=== PATIENT | male | born 1960 | race Caucasian/White ===

== ENCOUNTER → 2022-07-04 | Outpatient (CLI) | payer BC, SELFPAY ==
[2022-07-04 17:50] LABS: Absolute Lymphocyte Count 2.57 X10^3/uL (0.83-4.51); Absolute Neutrophil Count 5.5 X10^3/uL (2.0-7.7); Basophil% 1.1 % (0-1); Eosinophil# 0.25 X10^3/uL; Eosinophils% 2.7 % (0-5); Hematocrit 42.6 % (40-54); Hemoglobin 14.1 g/dL (13.0-16.5); Lymphocyte # 2.57 X10^3/ul (0.83-4.51); Lymphocyte % 27.9 % (19-41); Mean Corp Hgb Conc 33.1 g/dL (32-36); Mean Corpuscular Hgb 31.1 pg (27.0-32.0); Mean Corpuscular Volume 93.8 fL (80-94); Mean Platelet Vol. 11.3 fl (6.2-12.0); Monocyte# 0.72 X10^3/uL; Monocyte% 7.8 % (0-10); NRBC Flagged by Analyzer 0 % (0-5); Neutrophil # 5.53 X10^3/uL (2.7-7.7); Neutrophil % 60.2 % (47-70); Platelet Count 205 K/mm3 (150-450); RBC Distribution Width CV 13.4 % (11.6-14.6); RBC Distribution Width SD 46.5 fl (35.1-43.9); Red Blood Count 4.54 M/mm3 (4.6-6.2); White Blood Count 9.2 K/mm3 (4.4-11.0)
[2022-07-04 18:08] LABS: Cholesterol 170 mg/dL (200); High Density Lipoprotein 89 mg/dL; PSA,Total - Annual Screen 0.56 ng/mL (0.00-4.00); Thyroid Stim Hormone (TSH) 1.74 uIU/mL (0.358-3.74); Triglycerides 202 mg/dL; Very Low Density Lipoprotein 40 mg/dL (5-40)
[2022-07-04 18:54] LABS: Hemoglobin A1c 5.3 % (3.8-5.6)
== END | disposition home or self-care (01) ==
LOC: MTLAB 16:05
PROVIDERS: PCP Family Medicine; Referring Provider Family Medicine; Visit Provider Family Medicine
DX: Z13.0 Encounter for screening for diseases of the blood and blood-forming organs and certain disorders involving the immune mechanism (principal); Z13.1 Encounter for screening for diabetes mellitus; Z13.220 Encounter for screening for lipoid disorders; Z12.5 Encounter for screening for malignant neoplasm of prostate; Z13.29 Encounter for screening for other suspected endocrine disorder
CPT/HCPCS: 36415; 80061; 83036; 84153; 84443; 85025; G0103

== ENCOUNTER → 2023-08-08 | Outpatient (CLI) | payer BC, SELFPAY ==
[2023-08-08 18:37] LABS: Anion Gap 11 (5-15); BUN 15 mg/dL (7-18); BUN/Creat Ratio 16.9 RATIO (10-20); Calcium,Total 9.7 mg/dL (8.5-10.1); Chloride 104 mmol/L (98-107); Creatinine, Serum 0.89 mg/dL (0.70-1.30); EST Glomerular Filtration Rate 93 mL/min (>60); Est Glom Filt Rate - Afr Amer 112 mL/min (>60); Glucose 100 mg/dL (74-106); Sodium Level 138 mmol/L (136-145)
== END | disposition home or self-care (01) ==
LOC: MFPLAB 15:55
PROVIDERS: PCP Family Medicine; Visit Provider Family Medicine
DX: I10 Essential (primary) hypertension (principal)
CPT/HCPCS: 36415; 80048

== ENCOUNTER 2023-09-02 21:46 | Emergency (ER) | payer BC, SELFPAY ==
[2023-09-02 21:47] VITALS: BP 165/82; PULSE 93; RESP 18; TEMP 36.5; O2SAT 98; BMI 24.6
--- NOTE | 2023-09-02 22:00 | CT_ITS ---
EXAM: CT NECK WITH INTRAVENOUS CONTRAST CLINICAL INDICATION: L parotidis TECHNIQUE: Helically acquired images were obtained of the neck with intravenous contrast. This CT exam was performed using one or more of the following dose reduction techniques: automated exposure control, adjustment of the mA and/or kV according to patient size, and/or use of iterative reconstruction technique. CONTRAST: IV 100mL Isovue-370 COMPARISON: No relevant prior studies available. FINDINGS: NASOPHARYNX: No significant abnormality. SUPRAHYOID NECK: No significant abnormality. Oropharynx, oral cavity, parapharyngeal space and retropharyngeal space are unremarkable. INFRAHYOID NECK: No significant abnormality. The larynx, hypopharynx and supraglottis are unremarkable. SUBMANDIBULAR/PAROTID GLANDS: Edematous changes in the left parotid gland. Its margins are obscured with surrounding inflammatory changes. The right parotid and bilateral submandibular glands appear normal. THYROID: No significant abnormality. No enlarged or calcified nodules. SINUSES: Mucosal thickening in the paranasal sinuses. ORBITS: Bilateral ocular lens extraction presumptively for the treatment of cataracts. Otherwise, no acute orbital pathology. DENTAL: Extensive dental amalgam related to attenuation artifacts during and distorting adjacent tissues. This is a significant limitation of this examination. BONES/JOINTS: Multilevel degenerative changes in the cervical spine worst at C5-C6 where there is at least mild spinal canal stenosis and mild to moderate neural foraminal stenosis. No acute fracture. SOFT TISSUES: Extensive edema with soft tissue swelling in the left side of the face. Apparent thickening of the left masseter muscle with ill-defined margins. Left facial skin thickening with subcutaneous edema. No discrete soft tissue abscess is identified. VASCULATURE: No significant findings. LYMPH NODES: Multiple enlarged lymph nodes are present in bilateral level 2, left greater than right. LUNG APICES: Centrilobular emphysema. CT/Soft Tissue Neck WITH Contrast IMPRESSION: 1. The left-sided facial inflammatory changes may be secondary to parotitis or perhaps cellulitis and myositis of the masseter. No discrete abscess. No definite dental nidus for this inflammation is present. 2. Centrilobular emphysema. NOTE: Emphysema on CT is an independent risk factor for lung cancer. Consider low dose CT for lung cancer screening between the ages of 50 and 77. Electronically Signed: Aaron Brown DO at 23:20 EDT ,
--- NOTE | 2023-09-02 22:01 | ED.VIS.DENTA ---
HPI History of Present Illness Chief Complaint: Dental Informant: patient Narrative Narrative: 63-year-old male presenting for dental pain and he is having trouble controlling his pain. He states it started 3 to 4 days ago gradually, he states he seems to notice it after he accidentally bit the inside of his mouth on the left side. He admits he is not having any tooth ache. But he thought it was a dental abscess developing so he went and saw his dentist, he took some x-rays and said that the left maxillary second molar appeared to be diseased and getting some infection so he agreed with the patient that it was a dental abscess and put him on amoxicillin. Patient states he is simply here for pain control because he was taking ibuprofen 600 mg along with a pill of Tylenol and it is not touching the pain. Denies any systemic symptoms he is not a diabetic and does not have HIV. [facility] Medical History (Updated 09/02/23 @ 23:[address] Ab Gunderson MD) Smoker HTN (hypertension) Home Medications ?Medication ?Instructions ?Recorded ?Last Taken ?Type amoxicillin 875 mg-potassium 875 mg PO Q12H #28 TABLETS 09/02/23 Unknown Rx clavulanate 125 mg tablet hydrocodone-acetaminophen 5-325mg 1 tab PO Q6H PRN PRN Pain 3 days 09/02/23 Unknown Rx 5mg-325mg #12 TABLETS lisinopril 5 mg tablet 5 mg PO QHS 09/02/23 Unknown History sildenafil 50 mg tablet 50 mg PO QHS PRN ed 09/02/23 Unknown History Allergy/AdvReac Type Severity Reaction Status Date / Time No Known Allergies Allergy Verified 09/02/23 21:47 Surgical History (Updated 09/02/23 @ 22:21 by Edith Moses) Hx of inguinal hernia surgery Social History Smoking Status: Current every day smoker tobacco type: cigarettes ROS ROS ED Constitutional Constitutional ED: Denies chills or fever(s) ENT ENT ED: Reports other Details: facial pain/swelling Cardiovascular Cardiovascular: Denies chest pain Respiratory/Chest Respiratory/Chest: Denies cough or dyspnea Musculoskeletal Musculoskeletal: Denies back pain or neck pain Integumentary Denies rash Neurologic Neurologic: Denies headache(s), paresthesias or weakness EXAM Physical Exam Const Vital Signs: 09/02/23 21:47 Temperature 97.7 F L Temperature Source Temporal Pulse Rate 93 Respiratory Rate 18 Blood Pressure 165/82 H Blood Pressure Mean 109 Pulse Ox 98 Oxygen Delivery Method Room Air Positive well nourished and well developed General Appearance ED: well developed and NAD HEENT HEENT Narrative: Left preauricular area is swollen, tender, and firm. There is no submandibular swelling or tenderness, there is no dental tenderness. No trismus. No sublingual swelling. Stensen's duct on the left is nontender but prominent. With massaging the left parotid gland, there is a small amount of purulent material emanating from the left Stensen's duct. Face and Sinus: sinuses nontender Eyes PERRL and EOMs intact bilaterally Neck no lymphadenopathy and supple Resp normal respiratory effort Neuro oriented x3, CN's II-XII intact bilaterally, moves all extremities, no focal motor deficits and no sensory deficits noted Gait (Neuro): normal gait Psych mental status grossly normal Skin no rashes or lesions noted and no wounds MDM MDM MDM Narrative Medical decision making narrative: As I discussed with the patient my concern that this is not a tooth ache and rather is acute parotitis. Will obtain labs and a CT in order to discern whether there is an abscess or not and whether there is a stone in the duct or not, as well as to confirm my clinical suspicion. In the meantime and given him Toradol, morphine, and empiric Unasyn [address] the CT images and report which I agree with, it confirms parotitis. There is no sialolithiasis. I am going to put him on Augmentin as well as something for pain, and have him follow-up with ENT if this does not get better on its own. Otherwise he can follow-up with his PCP. I do not think this is months he has no other symptoms, and I do not have otolaryngology on-call today in order to discuss this with. Lab Data Attestation: I reviewed the patient's lab results. Labs: Laboratory Results - last 24 hr 09/02/23 22:20 WBC 10.2 RBC 4.41 L Hgb 13.7 Hct 39.8 L MCV 90.2 MCH 31.1 MCHC 34.4 RDW Std Deviation 42.3 RDW Coeff of Roman 12.7 Plt Count 201 MPV 10.6 Immature Gran % (Auto) 0.700 Neut % (Auto) 77.1 H Lymph % (Auto) 12.7 L Bonner % (Auto) 7.3 Eos % (Auto) 1.7 Baso % (Auto) 0.5 Absolute Neuts (auto) 7.9 H Absolute Lymphs (auto) 1.30 Nucleated RBC % 0 Sodium 137 Potassium 3.1 L Chloride 104 Carbon Dioxide 24.0 Anion Gap 9 BUN 19 H Creatinine 0.95 Estim Creat Clear Calc 84.31 Est GFR (MDRD) Af Amer 103 Est GFR (MDRD) Non-Af 85 BUN/Creatinine Ratio 20.0 Glucose 139 H Calcium 8.8 Radiography Diagnostic Testing: Clinical Impression(s) from Imaging Studies Soft Tissue Neck CT 09/02/23 22:00 IMPRESSION: 1. The left-sided facial inflammatory changes may be secondary to parotitis or perhaps cellulitis and myositis of the masseter. No discrete abscess. No definite dental nidus for this inflammation is present. 2. Centrilobular emphysema. NOTE: Emphysema on CT is an independent risk factor for lung cancer. Consider low dose CT for lung cancer screening between the ages of 50 and 77. Electronically Signed: Aaron Brown DO at 23:20 EDT , Discharge Plan Triage Chief Complaint: Dental ED Provider: Ab Gunderson Dx/Rx/DC Orders Clinical Impression: Acute suppurative parotitis Instructions: ED Salivary Gland Infection Prescriptions: New hydrocodone-acetaminophen 5-325 mg tablet 1 tab PO Q6H PRN PRN (Reason: Pain) 3 Days Qty: 12 0RF amoxicillin-pot clavulanate 875-125 mg tablet 875 mg PO Q12H Qty: 28 0RF Continued lisinopril 5 mg tablet 5 mg PO QHS sildenafil 50 mg tablet 50 mg PO QHS PRN (Reason: ed) Discontinued amoxicillin 250 mg capsule 250 mg PO Q6H Primary Care Provider: Valarie Burnett Referrals: Valarie Burnett MD [Primary Care Provider] - As soon as possible Earl Dhillon MD [Med Staff - Active Staff] - 1 Week if not improving Print Language: [place] Disposition Disposition: Home, Self Care Discharge Date/Time: 09/03/23 00:28
[2023-09-02 22:29] LABS: Absolute Neutrophil Count 7.9 X10^3/uL (2.0-7.7); Basophil# 0.05 X10^3/uL; Basophil% 0.5 % (0-1); Eosinophil# 0.17 X10^3/uL; Eosinophils% 1.7 % (0-5); Hematocrit 39.8 % (40-54); Hemoglobin 13.7 g/dL (13.0-16.5); Lymphocyte % 12.7 % (19-41); Mean Corp Hgb Conc 34.4 g/dL (32-36); Mean Corpuscular Hgb 31.1 pg (27.0-32.0); Mean Corpuscular Volume 90.2 fL (80-94); Mean Platelet Vol. 10.6 fl (6.2-12.0); Monocyte# 0.74 X10^3/uL; Monocyte% 7.3 % (0-10); NRBC Flagged by Analyzer 0 % (0-5); Neutrophil # 7.87 X10^3/uL (2.7-7.7); Neutrophil % 77.1 % (47-70); Platelet Count 201 K/mm3 (150-450); RBC Distribution Width CV 12.7 % (11.6-14.6); RBC Distribution Width SD 42.3 fl (35.1-43.9); Red Blood Count 4.41 M/mm3 (4.6-6.2); White Blood Count 10.2 K/mm3 (4.4-11.0)
[2023-09-02] MEDS: Ketorolac 15 MG/ML Vial IV (22:32)
[2023-09-02] MEDS: Ampicillin/Sulbactam 3 GM in 0.9% Normal Saline (100mL MB+) 100 ML IV (22:35)
[2023-09-02] MEDS: Morphine 4 MG/ML Syringe IV (22:38)
[2023-09-02 22:49] LABS: Anion Gap 9 (5-15); BUN 19 mg/dL (7-18); Calcium,Total 8.8 mg/dL (8.5-10.1); Chloride 104 mmol/L (98-107); Creatinine, Serum 0.95 mg/dL (0.70-1.30); EST Glomerular Filtration Rate 85 mL/min (>60); Est Glom Filt Rate - Afr Amer 103 mL/min (>60); Estimated Creatinine Clearance 84.31 ml/min; Glucose 139 mg/dL (74-106); Potassium 3.1 mmol/L (3.5-5.1); Sodium Level 137 mmol/L (136-145)
== END 2023-09-03 00:28 | disposition home or self-care (01) ==
PROVIDERS: Emergency Provider Emergency Medicine; PCP Family Medicine; Visit Provider Emergency Medicine
DX: K11.21 Acute sialoadenitis (principal); I10 Essential (primary) hypertension; F17.210 Nicotine dependence, cigarettes, uncomplicated; Z79.899 Other long term (current) drug therapy
CPT/HCPCS: 70491; 80048; 85025; 96365; 96366; 96375; 99283; J7030; Q9967; A4216; J0295

== ENCOUNTER → 2023-09-19 | Outpatient (CLI) | payer BC, SELFPAY ==
--- NOTE | 2023-09-19 | ASPOS_PTH ---
PATIENT: FIOR RAMIREZ LOC: [facility] U#:[id number] AGE/SX: 63/M ROOM: RE09/19/[address]: Dr. Reinaldo Rose MD : 1960 BED: DIS: 09/19/2023 SPEC #: [id number] RECD: 09/19/23 10:00 STATUS: JAYRO WHITTEN #: [id number] CARMELO: 09/19/23 00:[address]: Reinaldo Rose DEPT: CYTOLOGY RECD BY: Summer Guevara ENTERED: 09/19/23 11:06 SP TYPE: ASP HERE OTHR DR: Valarie Burnett MD Tissues: Cheek, NOS Procedures: Surgery Specimen Level IV Cytology Other Fine Needle Asp on Site HEADER OPERATION: Fine needle aspiration of left cheek mass PRE-OP DIAGNOSIS: Left cheek mass TISSUE SUBMITTED: Smears and fluid for cytology DIAGNOSIS CYTOLOGY Fine needle aspiration, left cheek mass (smears and cellblock): Acute inflammatory cells and benign histocytes. See comment. / 09/23/2023 COMMENT There is no evidence of malignancy. Clinical correlation is suggested. Immunohistochemistry ([id number]) supports the above diagnosis. Case has been reviewed in consultation with Dr. Devine who concurs with the above diagnosis. IDC:[facility] CYTOLOGY STUDY Slides are reviewed. CYTOLOGY GROSS Received is 0.2 ml of reddish labeled with the patient's name, and designated Left cheek mass. 5 imprints and 2 paps are made from the submitted fluid and the rest is added to CytoLyt for cell block preparation. Submitted for cytology study. / 09/19/2023 TC:2 CPT:24826,94511,06039,05615
--- NOTE | 2023-09-19 | IMM_PTH ---
PATIENT: FIOR RAMIREZ LOC: [facility] U#:[id number] AGE/SX: 63/M ROOM: RE09/19/[address]: Dr. Reinaldo Rose MD : 1960 BED: DIS: 09/19/2023 SPEC #: [id number] RECD: 09/20/23 11:00 STATUS: JAYRO REQ #: [id number] CARMELO: 09/19/23 00:[address]: Reinaldo Rose DEPT: IMMUNOHISTOCHEMISTRY RECD BY: Riley Helms ENTERED: 09/20/23 11:01 SP TYPE: IMMUNO OTHR DR: Valarie Burnett MD Tissues: Cheek, NOS Procedures: CK20 (add) CK7 (add) DESMIN (add) MONIK (add) KI-67 (add) MPO (add) P53 (add) Vimentin (add) Pankeratin (initial) CD68 (ADD) PHYSICIAN & INSTITUTION [place] [id number] SPECIMEN INFORMATION: Tissue Source: Left cheek mass Clinical Info: Left cheek mass Specimen Number: [id number] CPT code: 46818,89260p1 METHODOLOGY: Deparaffinized sections of prefer/formalin-fixed tissue or PAP/DQ stained slides are incubated with monoclonal/polyclonal antibodies/oligonucleotide probes. Localization is made via biotin free immunoperoxidase method. Appropriate controls are performed and reacted as expected. Results on target cell population are indicated in the following table: RESULTS: ANTIBODY / CLONE RESULT AE1-3 (AE1/AE3/PCK26) negative CK7 (OV-TL12/30) negative CK20 (KS20.8) negative MPO (polyclonal) positive Vimentin (V9) positive CD68 (KP-1) positive Desmin (CE-R-11) negative MONIK (E29) negative P53 (DO-7) negative, null pattern Ki-67 (30-9) positive low These tests were developed and their performance characteristics determined by [facility]. They may not have been cleared or approved by the U.S. Food and Drug Administration. The FDA has determined that such clearance or approval is not necessary. The above immunohistochemical/dualISH markers are ordered and reviewed by the Pathologist. INTERPRETATION: Fine needle aspiration, left cheek mass (cellblock): Acute inflammatory cells and benign histocytes. Case has been reviewed in consultation with Dr. Devine who concurs with the above diagnosis. IDC:CAM PATTERSON/ 09/23/2023
== END | disposition home or self-care (01) ==
LOC: LAB 09:22
PROVIDERS: PCP Family Medicine; Referring Provider Otolaryngology Otolaryngology/Facial Plastic Surgery; Visit Provider Otolaryngology Otolaryngology/Facial Plastic Surgery
DX: R22.1 Localized swelling, mass and lump, neck (principal)
CPT/HCPCS: 10021; 88161; 88305; 88341; 88342

== ENCOUNTER → 2023-10-23 | Outpatient (CLI) | payer BC, SELFPAY | END | disposition home or self-care (01) | LOC: PSN 13:06 | PROVIDERS: PCP Family Medicine; Referring Provider Family Medicine; Visit Provider Family Medicine | DX: J86.9 Pyothorax without fistula (principal) | CPT/HCPCS: 94060; 94726; 94729 ==

== ENCOUNTER → 2024-04-16 | Outpatient (CLI) | payer BC, SELFPAY ==
[2024-04-16 19:22] LABS: PSA,Total - Annual Screen 0.54 ng/mL (0.02-4.00); Potassium 4.1 mmol/L (3.3-5.1)
== END | disposition home or self-care (01) ==
LOC: MFPLAB 14:53
PROVIDERS: PCP Family Medicine; Referring Provider Family Medicine; Visit Provider Family Medicine
DX: Z12.5 Encounter for screening for malignant neoplasm of prostate (principal); E87.6 Hypokalemia
CPT/HCPCS: 36415; 84132; 84153; G0103